=== PATIENT | female | born 1945 | race Caucasian/White ===

== ENCOUNTER → 2023-12-14 11:36 | Outpatient (REF) | payer OTHER, SELFPAY | LOC: HWWDC 11:36 | PROVIDERS: ATTENDING PHYSICIAN Nurse Practitioner Family; FAMILY PHYSICIAN Family Medicine | DX: Z12.31 Encounter for screening mammogram for malignant neoplasm of breast (principal) | CPT/HCPCS: 77063; 77067 ==

== ENCOUNTER 2024-01-09 09:53 | Emergency (ER) | payer OTHER, SELFPAY ==
[2024-01-09 10:24] VITALS: BP 143/67
[2024-01-09 10:44] VITALS: BMI 32.1
[2024-01-09 10:45] VITALS: BP 156/74
[2024-01-09 11:00] VITALS: BP 150/60
[2024-01-09 11:08] LABS: % Basophils 0.8 % (0-2); % Eosinophils 0.6 % (0-6); % Immature Granulocytes 0.4 % (0-0.5); % Lymphocytes 14.3 % (20.5-51.1); % Monocytes 11.1 % (1.7-9.3); % Neutrophils 72.8 % (42.2-75.2); Absolute Lymphocytes 0.8 10^3/uL (1.2-3.4); Absolute Monocytes 0.6 10^3/uL (0.1-0.6); Absolute Neutrophils 3.9 10^3/uL (1.4-6.5); Hematocrit 36.6 % (37.0-47.0); Hemoglobin 13.2 g/dL (12.0-16.0); Mean Corp Hgb Conc. 36.1 g/dL (33.0-37.0); Mean Corpuscular Hgb 33.2 pg (27.0-31.0); Mean Platelet Volume 9.5 fL (7.4-10.4); Nucleated Red Blood Cells % 0 %; Platelet Count 318 10^3/uL (130-400); Red Blood Cell Count 3.98 10^6/uL (4.20-5.40); White Blood Cell Count 5.3 10^3/uL (4.8-10.8)
--- NOTE | 2024-01-09 11:10 | ED.GENMED ---
History of Present Illness
General
Chief Complaint: Numbness
Source: patient
Exam Limitations: none
Time Seen by Provider: 01/09/24 11:09
Nursing documentation reviewed up to this point in time: agreed with
History of Present Illness
History of Present Illness:
PT IS A 78 y/o F with h/o HTN, hld
had cough start around 12/27, cold symptoms; was preetty spastic sounding cough/forceful cough
but the symptoms did ultimately improve but not resolve; because she was still coughing some she saw her MACHINE DESIGN CHECKER 2 days ago who prescribed prednisone 40 x 2, 20 x 2, 10 x 2 (took 1 dose yesteray 40 mg) and zithromax as well as tessalon perles
pt says she took 2 doses tessalon
she has hd prendisone and the zithromax before but hasnt' had the tessalon previously
lsat night while watching TV she noticed some tingling of the fingertips of her R hand
then went to sleep and woke up and has tingling in fingertips of both hands, a little of her L foot and maybe even around her mouth
she has no weankess, isn' dropping thhings, no heaache, no fever.
no trouble walking/talking
ccalled her pcp office and was intstructed to come in
she has never had these symptoms before
Past History
Past History
ED Past Medical History: HTN and Hypercholesterolemia
Social History
Tobacco: Non-smoker
Alcohol: None
Drug: None
Review of Systems
Review of Systems
Allergies reviewed?: Yes
All Other Systems: Not applicable
Phy Exam
Physical Exam
Physical Exam:
GENERAL: Alert , in no apparent distress
HEAD: NCAT
EYE: pupils equal and reactive, no nystagmus, no photophobia
NECK: Supple,full rom, nontender
ENT: o/p clr, mmm.
CARDIAC: Regular rate and rhythm . no edema
LUNGS: Clear breath sounds bilaterally, no acute respiratory distress, no wheezes/rales/rhonchi
ABDOMEN: Soft, without focal tenderness, no r/g, no cvat
NEUROLOGICAL: Alert and orientedx 4, cn intact, no facial asymmetry, 5/5 strength in UE/LE, sensation intact, romberg neg, ambulates without assistance, neg pronator drift, 2+ BRACHIAL REFLEXES; 1+ ACHILLES; difficult to assess patellar
SKIN: Warm and dry, skin intact.
MUSCULOSKELETAL: No edema, well perfused.
nonrmal inspection of arms/legs; no swelling of joints, normal color full strength and sensation is diminished to light touch subjectively;
PSYCH: Normal and appropriate interaction.
Course
Orders/Labs/Results
Orders:
Orders
01/09/24 10:35
COVID-19 Antigen Urgent
Source: Nasal Swab
Influenza A+B Rapid Molecular Urgent
[facility] Source: Nasal Swab
Specimen Description:
01/09/24 10:57
CMP [Comprehensive Metabolic Panel] Urgent
Complete Blood Count/With Diff Urgent
Magnesium Urgent
Comment: ADD ON
Vitamin B12 Urgent
Comment: ADD ON
01/09/24 11:31
Add On- LAB Urgent
Tests Added?: magnesium, vit b12
01/09/24 11:33
Electrocardiogram (*1) Urgent
Reason for Study: Other
Other Reason for Exam: numbnesss
EKG- Treatment ONCE
CR Chest - 2 Views Urgent
Comment:
Reason For Exam: cough
01/09/24 13:01
Potassium Chloride Powder [Klor-Con] 40 meq PO NOW STA
Abnormal Lab Results
01/09/24
10:57
RBC 3.98 L 10^6/uL
(4.20-5.40)
Hct 36.6 L %
(37.0-47.0)
MCH 33.2 H pg
(27.0-31.0)
Absolute Lymphs (auto) 0.8 L 10^3/uL
(1.2-3.4)
Lymphocytes % 14.3 L %
(20.5-51.1)
Monocytes % 11.1 H %
(1.7-9.3)
Potassium 3.1 L mmol/L
(3.5-5.1)
Chloride 97 L mmol/L
(98-107)
Carbon Dioxide 32 H mmol/L
(22-30)
Glucose 104 H mg/dl
(70-99)
01/09/24 10:57
01/09/24 10:57
Vital Signs
Initial and Last Documented VS:
Initial Vital Signs
Temp Pulse Resp BP Pulse Ox
98.5 F 73 17 143/67 97
01/09/24 10:24 01/09/24 10:24 01/09/24 10:24 01/09/24 10:24 01/09/24 10:24
Last Documented Vital Signs
Temp Pulse Resp BP Pulse Ox
98.5 F 73 17 150/61 96
01/09/24 10:24 01/09/24 10:24 01/09/24 10:24 01/09/24 12:00 01/09/24 12:00
MDM/Problems Addressed
Differential Diagnosis Includes:
electrolyte disturbance (hypocalcemia, hypomagnesesmia), side effects from medication, less likey GBS;
MDM/Problems Addressed:
78 y/o F h/o htn, hld
no longer on hctz
here wiht paresthesias, painless to R hand and then L hand and some in toes today
no oclor change, no weakness
recent URI with cough that is moty resolving but she saw MACHINE DESIGN CHECKER at PCP office 2 days ago and was given steroids and tessalon and zithromax
pt has taken steroids without problem before
she took 1 dose yesterday bfore paresthessias started
she has no headache, neck pain, fever, cp, sob, gi symptoms
she iseating/drinking normally
not acloholic
no weakness associated
pt has present reflexs in B/L AC regions, as well as achilles but difficult to ilicit in patellar
no focal neuro findings
sensation is grossly intact
suspicious for electrolyte abnormality but her mag and calcium are normal
k is slightly low
consider early GBS - d/w ed attending
givne no weakness, intact UE reflexes, no indication to w/u further at this time but i did speak with PCP regarding this and tell pt return precautions
potasium suppement x 3 days
return preautions
*Critical Care Note
Total Time (30-74mins, 75-104mins- exclusive of procedures): Not Applicable
ED Attending Note
-
Portions of this chart may have been created with voice recognition software.� Occasional wrong word or��sound alike� substitutions may have occurred due to the inherent limitations of voice recognition software.
Discharge Plan
Departure
Patient Disposition: Home (Routine Discharge)
Date of Disposition: 01/09/24
Time of Disposition: 13:09
Patient with high blood pressure during this ER visit?: Yes
Condition: Fair
Covid-19: Not Applicable
Discharge Problem:
Paresthesia, Hypokalemia
Instructions: Hypokalemia, Paresthesia (DC)
Prescriptions:
New
potassium chloride 20 mEq packet
20 meq PO DAILY Qty: 3 0RF
No Action
sertraline 50 MG tablet
75 mg PO DAILY
hydrochlorothiazide 12.5 MG tablet
12.5 mg PO DAILY
metoprolol succinate 50 MG tablet extended release 24 hr
50 mg PO DAILY
amlodipine 5 MG tablet
5 mg PO DAILY
valsartan 40 MG tablet
40 mg PO DAILY
rosuvastatin 10 MG tablet
10 mg PO DAILY
aspirin 81 MG tablet,chewable
81 mg PO DAILY
cholecalciferol (vitamin D3) 2,000 UNIT tablet
2,000 units PO .48
L. [id number] cit-yeast [Culturelle Adv Immune Defense] 1 EACH capsule
1 tab PO .Q48
Referrals:
NONE,* [Active] -
Activity Restrictions/Additional Instructions:
WE ARE NOT SURE THE CAUSE OF YOUR SYMPTOMS
YOU DID HAVE A SLIGHTLY LOW POTASSIUM
TAKE POTASSIUM ONCE A DAY FOR 3 DAYS
FOLLOW UP WITH [facility] [place] DOCTOR, CALL THURSDAY FOR A RECHECK
DO NOT HESITATE TO COME TO THE ER SOONER IF YOU GET: NECK PAIN, FEVER, WEAKNESS, TROUBLE WALKING, BALANCE PROBLEMS, DOUBLE VISION OR ANY CONCERNS.
Interventions
Interventions:
*Risk Screen - Suicide Last Done: 01/09/24 10:44
*General Assessment Last Done: 01/09/24 10:44
*Neglect/Abuse Screening Last Done: 01/09/24 10:44
ED- Fall Risk Assessment Last Done: 01/09/24 10:44
*ED COVID-19 Vaccine History Last Done: 01/09/24 10:44
ED- Neurological Assessment Last Done: 01/09/24 10:44
Discharge Date and Time
Print Language: SERBIAN
[2024-01-09 11:16] LABS: COVID-19 Antigen Negative (Negative)
[2024-01-09 11:25] LABS: ALT (SGPT) 18 U/L (0-35); AST (SGOT) 29 U/L (14-36); Albumin 4.1 g/dl (3.5-5.0); Alkaline Phosphatase 73 U/L (38-126); Blood Urea Nitrogen 14 mg/dl (7-17); Calcium 9.3 mg/dl (8.4-10.2); Carbon Dioxide 32 mmol/L (22-30); Chloride 97 mmol/L (98-107); Estimated Creatinine Clearance 68 ml/min; Glucose 104 mg/dl (70-99); Potassium 3.1 mmol/L (3.5-5.1); Sodium 140 mmol/L (135-145); Total Bilirubin 0.5 mg/dl (0.2-1.3); Total Protein 7.6 g/dl (6.3-8.2); eGFR > 60.00
[2024-01-09 11:44] VITALS: BP 169/69
[2024-01-09 12:00] VITALS: BP 150/61
[2024-01-09] MEDS: KLOR-CON 40 MEQ PO (13:10)
[2024-01-09 13:28] LABS: Vitamin B12 633 pg/ml (239-931)
[2024-01-09 13:46] VITALS: BP 154/71
== END 2024-01-09 13:51 | disposition home or self-care (01) ==
LOC: EMR 09:53
PROVIDERS: EMERGENCY PHYSICIAN Emergency Medicine; FAMILY PHYSICIAN Family Medicine
DX: E87.6 Hypokalemia (principal); R20.2 Paresthesia of skin; I10 Essential (primary) hypertension; E78.00 Pure hypercholesterolemia, unspecified
CPT/HCPCS: 99285; 71046; 80053; 82607; 83735; 85025; 87502; 87811; 93005

== ENCOUNTER → 2024-01-19 11:20 | Outpatient (REF) | payer OTHER, SELFPAY | LOC: RAD 11:20 | PROVIDERS: ATTENDING PHYSICIAN Nurse Practitioner Family | DX: R20.0 Anesthesia of skin (principal) | CPT/HCPCS: 72050 ==

== ENCOUNTER → 2024-03-30 10:42 | Outpatient (REF) | payer OTHER, SELFPAY | LOC: MRI 3T 10:42 | PROVIDERS: ATTENDING PHYSICIAN Specialist; FAMILY PHYSICIAN Nurse Practitioner Family | DX: G95.9 Disease of spinal cord, unspecified (principal) | CPT/HCPCS: 72156; A9575 ==

== ENCOUNTER → 2024-12-14 10:49 | Outpatient (REF) | payer OTHER, SELFPAY | LOC: HWWDC 10:49 | PROVIDERS: ATTENDING PHYSICIAN Nurse Practitioner Family | DX: Z12.31 Encounter for screening mammogram for malignant neoplasm of breast (principal) | CPT/HCPCS: 77063; 77067 ==